=== PATIENT | female | born 1985 | race Caucasian/White ===

== ENCOUNTER 2022-11-04 06:25 | Day surgery (SDC) | payer OTHER ==
[~2022-11-04] VITALS: Ht 160 cm; Wt 56.2 kg
[2022-11-04] MEDS ORDERED: ONDANSETRON 4 MG/2 ML VIAL IVP PRN (10:05)
[2022-11-04] MEDS ORDERED: LIDOCAINE MPF 1% 0 ML ONE (10:06)
[2022-11-04] MEDS ORDERED: BUPIVACAINE-MPF 0.25% 30 ML VIAL INJ ONE (10:06)
[2022-11-04] MEDS ORDERED: LIDOCAINE 1% 500 MG/50 ML VIAL ONE (10:07)
[2022-11-04] MEDS ORDERED: ROCURONIUM 50 MG/5 ML VIAL IV ONE (10:42)
[2022-11-04] MEDS ORDERED: DEXAMETHASONE 4 MG/ML VIAL ONE (10:42)
[2022-11-04] MEDS ORDERED: PROPOFOL 200 MG/20 ML VIAL IV ONE (10:42)
[2022-11-04] MEDS ORDERED: HYDROmorphone PFS 2 MG/ML SYR ONE ×3 (10:42→12:49)
[2022-11-04] MEDS ORDERED: SUCCINYLCHOLINE CHLORIDE 200 MG/10 ML VIAL IVP ONE (10:42)
[2022-11-04] MEDS ORDERED: ONDANSETRON 4 MG/2 ML VIAL ONE (10:42)
[2022-11-04] MEDS ORDERED: DESFLURANE 240 ML BTL INH ONE (10:42)
[2022-11-04] MEDS ORDERED: fentaNYL citrate 0.05 MG/ML VIAL ONE (10:50)
[2022-11-04] MEDS: HYDROmorphone 1 MG/ML AMP IVP PRN ×4 (12:48→13:27)
[2022-11-04] MEDS ORDERED: KETOROLAC 30 MG/ML VIAL IVP ONE ×2 (12:50)
== END 2022-11-04 15:00 | disposition home or self-care (01) ==
LOC: MDS 06:25 → MMU 06:36 → MDS 15:00
PROVIDERS: ATTEND Obstetrics & Gynecology
DX: N80.103 Endometriosis of bilateral ovaries, unspecified depth (principal); D25.9 Leiomyoma of uterus, unspecified; F32.A Depression, unspecified
CPT/HCPCS: 58662; 82374; 88305; J0330; J1100; J1170; J2001; J2405; J2704; J3010; J3490; J7120

== ENCOUNTER 2022-12-04 12:26 | Emergency (ER) | payer OTHER ==
[~2022-12-04] VITALS: Ht 160 cm; Wt 54.4 kg
[2022-12-04 12:57] VITALS: BP 125/82; PULSE 62; RESP 18; TEMP 98.3; O2SAT 99
[2022-12-04] MEDS ORDERED: ONDANSETRON 4 MG/2 ML VIAL IVP ONE (13:35)
[2022-12-04] MEDS ORDERED: KETOROLAC 30 MG/ML VIAL IVP ONE (13:35)
[2022-12-04] MEDS ORDERED: NACL 0.9% 1,000 ML IV ONE (13:35)
[2022-12-04 13:53] LABS: APPEARANCE,URINE CLEAR (CLEAR); BILIRUBIN,URINE NEGATIVE (NEGATIVE); BLOOD, URINE TRACE-I (NEGATIVE); COLOR,URINE YELLOW (YELLOW); LEUKOCYTE ESTERASE ,URINE NEGATIVE (NEGATIVE); NITRITE, URINE NEGATIVE (NEGATIVE); PROTEIN,URINE NEGATIVE (NEGATIVE); UGLUCOSE NEGATIVE (NEGATIVE); UROBILINOGEN,URINE 0.2 EU/dL (0.2 - 1)
[2022-12-04 13:55] LABS: BASOPHILS % (AUTO) 0.3 % (0.0-2.0); EOSINOPHILS # (AUTO) 0.1 K/uL (0-0.4); EOSINOPHILS % (AUTO) 0.8 % (0.0-4.0); HEMOGLOBIN 13.5 g/dL (12.0-16.0); LYMPHOCYTES # (AUTO) 1.1 K/uL (2.5-16.5); LYMPHOCYTES % (AUTO) 9.8 % (20.5-51.1); MEAN CORPUSCULAR HEMOGLOBIN 30 pg (27-31); MEAN CORPUSCULAR HGB CONC 34 g/dL (33-37); MEAN CORPUSCULAR VOLUME 89.5 fL (80-94); MONOCYTES # (AUTO) 0.6 K/uL (0.8-1.0); MONOCYTES % (AUTO) 5.3 % (1.7-9.3); NEUTROPHILS # (AUTO) 9.5 K/uL (1.8-7.7); NEUTROPHILS % (AUTO) 83.8 % (42.2-75.2); PLATELET COUNT (AUTO) 206 K/uL (140-450); RED BLOOD CELL COUNT(AUTO) 4.47 MIL/uL (4.20-5.40); RED CELL DISTRIBUTION WIDTH 13.7 % (11.6-13.7); WHITE BLOOD COUNT (AUTO) 11.3 K/uL (4.8-10.8)
[2022-12-04 14:17] LABS: ALBUMIN 3.9 g/dL (3.4-5.0); ANION GAP 9.8 (8-16); CARBON DIOXIDE 29.7 mmol/L (21-32); CREATININE 0.6 mg/dL (0.6-1.3); POTASSIUM 4.5 mmol/L (3.5-5.1); TOTAL BILIRUBIN 0.3 mg/dL (0.0-1.0); TOTAL PROTEIN, SERUM 6.7 g/dL (6.4-8.2)
[2022-12-04] MEDS ORDERED: IBUP-2213 PO ×2 (15:53→16:32)
[2022-12-04] MEDS ORDERED: HYDR-5191 PO ×2 (15:53→16:32)
[2022-12-04 16:02] VITALS: BP 116/79; PULSE 74; RESP 17; O2SAT 98
== END 2022-12-04 16:03 | disposition home or self-care (01) ==
LOC: MED 12:26
DX: R10.30 Lower abdominal pain, unspecified (principal); R11.2 Nausea with vomiting, unspecified; R19.7 Diarrhea, unspecified; F41.9 Anxiety disorder, unspecified; F17.210 Nicotine dependence, cigarettes, uncomplicated; F12.90 Cannabis use, unspecified, uncomplicated; Z98.890 Other specified postprocedural states
CPT/HCPCS: 36415; 76705; 76830; 80053; 81003; 81025; 83690; 85025; 93976; 96361; 96374; 96375; 99285; J1885; J2405; J7030; Q0092